=== PATIENT | female | born 1965 | race Hispanic/Latino ===

== ENCOUNTER → 2020-05-21 14:36 | Outpatient (CLI) | payer OTHER, SELFPAY ==
[2020-05-21] MEDS: COVID-19 VACC #1, MRNA(MOD) 100 MCG/0.5 ML VIAL IM (14:54)
== END ==
PROVIDERS: Visit Provider Internal Medicine
DX: Z23 Encounter for immunization (principal)
CPT/HCPCS: 0011A; 91301

== ENCOUNTER → 2020-06-19 14:58 | Outpatient (CLI) | payer OTHER, SELFPAY ==
[2020-06-19] MEDS: COVID-19 VACC #2, MRNA(MOD) 100 MCG/0.5 ML VIAL IM (15:06)
== END ==
PROVIDERS: Visit Provider Internal Medicine
DX: Z23 Encounter for immunization (principal)
CPT/HCPCS: 0012A; 91301